=== PATIENT | female | born 1980 | race American Indian/Alaskan Native ===

== ENCOUNTER 2021-11-13 15:50 | Outpatient (CLI) | payer OTHER ==
--- NOTE | 2021-11-13 17:25 | XRay Report ---
RIGHT HIP 2 VIEWS INDICATION / CLINICAL INFORMATION: M25.551 PAIN IN THE RIGHT HIP COMPARISON: None available. FINDINGS: BONES and JOINT(S): No acute fracture or subluxation. There is moderate/severe right hip osteoarthrit is with joint space loss most notable superiorly. SOFT TISSUES: No significant abnormality. ADDITIONAL FINDINGS: None. IMPRESSION: Moderate/severe right hip osteoarthritis. Signer Name: Frank Taylor MD Signed: 11/13/2021 5:20 PM Workstation Name: [id number]
== END 2021-11-13 15:51 | disposition home or self-care (01) ==
LOC: XRAY 15:50
PROVIDERS: ATTEND Orthopaedic Surgery
DX: M16.11 Unilateral primary osteoarthritis, right hip (principal)